=== PATIENT | male | born 1980 | race Caucasian/White ===

== ENCOUNTER 2017-02-12 13:14 | Emergency (ER) | payer SELFPAY ==
--- NOTE | ~2017-02-12 | ER ---
PATIENT'S NAME: LORNA PEDRAZA [facility] AGE: 36 Y [address] ROOM: [place] [address] LOCATION: [facility] ADMIT DATE: 02/12/2017 ER/Outpatient Report DISCHARGE DATE: 02/12/2017 FAMILY PHYSICIAN: PHYSICIAN, JOSH ATTENDING PHYSICIAN: Ayaka Peck TIME OF ARRIVAL: 1318. TIME OF EXAM: 1318. CHIEF COMPLAINT: Left eye pain. HISTORY OF PRESENT ILLNESS: The patient reports he was working yesterday. He did have contacts in. He was wearing safety glasses. He feels like he got a piece of dirt into his left eye. He was using a backside grinder cutting yesterday but states he had his safety glasses on and did not feel as that the incident occurred then. States when he got home, he did rinse his eye out, but continued to be painful and sore, red today. He did take his contacts out last night. Does have some photophobia. Causes increased watering and discomfort of the left eye. ALLERGIES: HE HAS NO KNOWN ALLERGIES. CURRENT MEDICATIONS: None. PAST MEDICAL HISTORY: Benign. SURGERIES: Negative. SOCIAL HISTORY: Smokes pack per day. Has for the last 19 years. Denies any use of drugs. Does drink alcohol on just a rare occasion. REVIEW OF SYSTEMS: Negative other than those mentioned in the HPI. PHYSICAL EXAMINATION: VITAL SIGNS: He weighed 100.7 kg. Blood pressure is 130/80, pulse of 82, PATIENT'S NAME: LORNA PEDRAZA [facility] AGE: 36 Y [address] ROOM: [place] [address] LOCATION: [facility] ADMIT DATE: 02/12/2017 ER/Outpatient Report DISCHARGE DATE: 02/12/2017 FAMILY PHYSICIAN: PHYSICIAN, NO ATTENDING PHYSICIAN: Ayaka Peck respirations 20, temperature of 97.4 tympanic, and O2 saturation was 94% on room air. HEENT: Visual acuity right is 20/20 with glasses. Left is 20/40 with glasses. States he does have some blurriness of the left eye when he read the eye chart. Pupils are equal and reactive to light. He does have photophobia. Gross funduscopic exam is within normal limits. GENERAL: He is awake, alert, and oriented x4. SKIN: [place], warm, and dry. RESPIRATIONS: Even and nonlabored. LUNG: Sounds are clear throughout. HEART: Regular rate and rhythm. EMERGENCY ROOM COURSE: Left eye was anesthetized with Alcaine and then stained with fluorescein. Wood lamp was utilized. An abrasion is noted in the left lower corneal area. Eye was then rinsed well with eye wash. No foreign body is seen. Eyelid was examined. No foreign object is seen. IMPRESSION: Corneal abrasion. PLAN: Home, rest, do not wear his contacts until the eye is healed. He is to rest his eyes as much as possible. I did give him prescription for tobramycin eye drops and [place] for pain. If his symptoms do not improve in the next 2 to 3 days, he is to follow up with an eye doctor. He verbalized understanding. ANDI SCHULER APRN FOR MD ASHUTOSH PHAN/catie /[id number] d: 02/12/[id number] t: 02/15/17 0705, OUTPATIENT REPORT
== END 2017-02-12 13:43 | disposition disaster alternative care site (69) ==
LOC: GMED 13:14
DX: S05.02XA Injury of conjunctiva and corneal abrasion without foreign body, left eye, initial encounter (principal); F17.210 Nicotine dependence, cigarettes, uncomplicated; Y99.0 Civilian activity done for income or pay; W45.8XXA Other foreign body or object entering through skin, initial encounter